=== PATIENT | female | born 1950 | race Caucasian/White ===

== ENCOUNTER → 2016-07-09 | Outpatient (CLI) | payer MEDICARE, BC | END | disposition home or self-care (01) | LOC: GMAM 17:51 | PROVIDERS: ATTEND Family Medicine | DX: I10 Essential (primary) hypertension (principal); E04.9 Nontoxic goiter, unspecified ==

== ENCOUNTER → 2017-01-06 | Outpatient (CLI) | payer MEDICARE, BC | END | disposition home or self-care (01) | LOC: GMAM 14:26 | PROVIDERS: ATTEND Family Medicine | DX: E04.9 Nontoxic goiter, unspecified (principal) ==

== ENCOUNTER → 2017-02-03 | Outpatient (CLI) | payer MEDICARE, BC ==
--- NOTE | 2017-02-04 18:17 | CT ---
EXAM DESCRIPTION: Chest w/Contrast CT CLINICAL HISTORY: R91.8, I10 COMPARISON: Abdomen pelvis CT scan 02/15/2016. TECHNIQUE: Spiral-axial scans at 5.0 mm intervals through the lungs and thorax with IV contrast. 2.5 mm lung algorithm axial reconstructions. Coronal and sagittal 2.0 Mm reconstructions. No adverse reactions. Total Exam DLP: 636.85 mGy-cm. This exam was performed according to our departmental dose-optimization program which includes automated exposure control, adjustment of the mA and/or kV according to patient size and/or use of iterative reconstruction technique; to reduce radiation dose to as low as reasonably achievable (ALARA). FINDINGS: Marked enlargement and masslike thyroid gland predominantly left lobe and isthmus compared to the right lobe. The left lobe measures 6.2 x 5.4 cm largest transverse dimensions which is in the upper mediastinum with mass effect on the brachiocephalic vessels and left innominate vein. Small calcifications in the left lobe just above this level. The lobe is almost 10 cm craniocaudal. Superior extent is above the level of the piriform sinuses, at the level of the thyroid cartilage and inferior hyoid bone, with mass effect on the airway to the right. Right lobe measures 3.4 x 2.7 cm just above the thoracic inlet with craniocaudal length 5.7 cm, extending into the superior mediastinum. Isthmus thickness is 1.5 cm with a nodule extending inferiorly from the left side. The trachea and esophagus are deviated to the right of midline. Bilateral mass effect on jugular veins and carotid arteries, and superior aspect of the SVC. Inferior extent is the aortic arch. Partially calcified posterior right hilar nodes. No enlarged nodes in the AP window or azygos spaces. No enlarged nodes in the subcarinal space. Minimal atelectasis in the right lung base. Small right pleural bleb. No pleural effusion or pneumothorax. Epicardial fat abutting the posterior right hemidiaphragm. Focal thickening in the anterior lateral horizontal fissure versus 5 mm lymph node. No abnormal nodules or infiltrates. No subdiaphragmatic fluid or free air in the included peritoneal space. Splenic calcification. Normal size of the adrenal glands. Almost 1 cm radiodense gallstone in the neck of the gallbladder. Question of more inferior dependent gravel. 1.2 cm cyst inferior right hepatic lobe. No abnormality in the included pancreas. Spondylosis in the cervical spine and in the lower thoracic spine. No bone destruction in the included thorax. Arthrosis in the bilateral sternoclavicular joints. No enlarged axillary lymph nodes. IMPRESSION: 1. Massive enlargement of the thyroid gland left lobe more than isthmus and the right. Cannot rule out infiltrative process. No significant adenopathy surrounding the gland. Consider image guided fine-needle core biopsy of the gland. 2. No significant pulmonary disease. 3. 1.2 cm cyst in the inferior right hepatic lobe. 1 cm radiodense gallstone. Electronically signed by: Rob Borden MD 02/04/2017 6:15 PM CDT Workstation: [id number]
== END ==
LOC: CT 09:01
PROVIDERS: ATTEND Family Medicine
DX: R91.8 Other nonspecific abnormal finding of lung field (principal); I10 Essential (primary) hypertension; E04.9 Nontoxic goiter, unspecified; K76.89 Other specified diseases of liver; K80.80 Other cholelithiasis without obstruction

== ENCOUNTER → 2017-03-18 | Outpatient (CLI) | payer MEDICARE, BC ==
--- NOTE | 2017-03-18 16:10 | US ---
PROCEDURE: Venous,Lower Extremity LT CLINICAL HISTORY and INDICATION: Left leg swelling and pain COMPARISON: None. TECHNIQUE: Woo scale imaging with duplex interrogation of the left lower extremity venous system was performed and multiple static images were obtained. FINDINGS: Utilizing compression and augmentation, there is no deep venous thrombus in the common femoral, superficial femoral or popliteal veins. The posterior tibial and deep peroneal veins are patent and compressible. . The greater saphenous vein at the saphenofemoral junction is patent and compressible. There is no visualization of any subcutaneous fluid collections. There is no visualization of any fluid collections in the left popliteal fossa. There is no evidence of reactive or pathological lymphadenopathy in the evaluated left lower extremity. IMPRESSION: No deep venous thrombosis of the left lower extremity. Location of Interpretation: [id number] Electronically signed by: Jimbo Marie MD 03/18/2017 4:09 PM CDT Workstation: [id number]
--- NOTE | 2017-03-18 20:01 | US ---
PROCEDURE: Venous,Lower Extremity LT CLINICAL HISTORY and INDICATION: Left leg swelling and pain COMPARISON: None. TECHNIQUE: Woo scale imaging with duplex interrogation of the left lower extremity venous system was performed and multiple static images were obtained. FINDINGS: Utilizing compression and augmentation, there is no deep venous thrombus in the common femoral, superficial femoral or popliteal veins. The posterior tibial and deep peroneal veins are patent and compressible. . The greater saphenous vein at the saphenofemoral junction is patent and compressible. There is no visualization of any subcutaneous fluid collections. There is no visualization of any fluid collections in the left popliteal fossa. There is no evidence of reactive or pathological lymphadenopathy in the evaluated left lower extremity. IMPRESSION: No deep venous thrombosis of the left lower extremity. Location of Interpretation: [id number] Electronically signed by: Jimbo Marie MD 03/18/2017 4:09 PM CDT Workstation: [id number]
== END ==
LOC: US 09:33
PROVIDERS: ATTEND Family Medicine
DX: R60.9 Edema, unspecified (principal); I10 Essential (primary) hypertension; R73.09 Other abnormal glucose

== ENCOUNTER → 2017-06-15 | Outpatient (CLI) | payer MEDICARE, BC | LOC: GMAM 14:40 | PROVIDERS: ATTEND Family Medicine | DX: E04.9 Nontoxic goiter, unspecified (principal) ==

== ENCOUNTER → 2017-10-19 | Outpatient (CLI) | payer MEDICARE, BC | LOC: GMAM 11:48 | PROVIDERS: ATTEND Family Medicine | DX: E04.9 Nontoxic goiter, unspecified (principal) ==

== ENCOUNTER → 2017-11-23 | Outpatient (CLI) | payer MEDICARE, BC | LOC: GMAM 12:44 | PROVIDERS: ATTEND Family Medicine | DX: E04.9 Nontoxic goiter, unspecified (principal) ==

== ENCOUNTER → 2017-12-02 | Outpatient (CLI) | payer MEDICARE, BC ==
--- NOTE | 2017-12-02 17:32 | MRI ---
EXAM DESCRIPTION: Lumbar Spine w/o Contrast : Magnetic Resonance Imaging. CLINICAL HISTORY: LOW BACK PAIN COMPARISON: LUMBAR TECHNIQUE: Multiplanar, multiple standard sequences, non contrast MRI, lumbar spine. FINDINGS: L5-S1: Normal signal in the disc with disc space preserved. Minimal facet arthrosis and flavum ligament hypertrophy. Mild canal narrowing. Bilateral moderate foraminal narrowing. L4-5: Normal signal in the disc with disc space preserved. Minimal right facet arthrosis. Bilateral flavum ligament hypertrophy. Mild canal narrowing. Bilateral foramina are patent. Anterior inferior L4 endplate right T1 and T2 well circumscribed signal. L3-4: Normal signal in the disc. Disc space preserved. Flavum ligament hypertrophy. Facets are unremarkable. Canal is patent. Bilateral foramina are patent. L2-3: Normal signal in the disc and disc space preserved. Minimal flavum ligament hypertrophy. Normal facets. Canal is patent. Bilateral foramina are patent. L1-2: Minimal disc desiccation. Anterior disc space loss. Anterior bulging and endplate ridging. Bright T1 and T2 and inversion recovery signal in the superior L2 endplate. No posterior bulging. Posterior elements unremarkable. Canal and foramina are patent. T12-L1: Normal signal in the disc and Disc space preserved. Flavum ligaments hypertrophy. Facets are unremarkable. Canal and foramina are patent. Conus terminates at this level. Anatomic alignment and curvature of the spine. Paravertebral soft tissues minimal paraspinal muscle atrophy.. Normal marrow signal in the remaining vertebral bodies and the posterior elements. Vertebral bodies are not compressed at any level. IMPRESSION: 1. Minimal to no disc degeneration. Canal narrowing at most levels due to flavum ligament hypertrophy. Minimal facet arthrosis on the study. No significant canal or foraminal stenosis. 2. Anterior disc degeneration and disc space loss at L1-L2 with mild spondylosis. 3. Mild canal narrowing L5-S1 with bilateral moderate foraminal narrowing. 4. Anterior hemangioma in the inferior L4 endplate. Electronically signed by: Rob Borden MD 12/02/2017 5:30 PM CDT
== END ==
LOC: MRI 10:00
PROVIDERS: ATTEND Family Medicine
DX: M51.36 Other intervertebral disc degeneration, lumbar region (principal); D18.09 Hemangioma of other sites; M54.5 Low back pain

== ENCOUNTER → 2018-01-27 | Outpatient (CLI) | payer MEDICARE, BC | LOC: GMAM 14:57 | PROVIDERS: ATTEND Family Medicine | DX: E04.9 Nontoxic goiter, unspecified (principal) ==

== ENCOUNTER → 2018-05-25 | Outpatient (CLI) | payer MEDICARE, BC | LOC: GMAM 14:35 | PROVIDERS: ATTEND Family Medicine | DX: E04.9 Nontoxic goiter, unspecified (principal) ==

== ENCOUNTER → 2018-05-28 | Outpatient (CLI) | payer MEDICARE, BC ==
--- NOTE | 2018-05-28 13:10 | CT ---
Procedure: CT LUNG SCREENING Exam Date: 05/28/2018. 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 This patient meets eligibility criteria for low-dose CT lung cancer screening. Comparison: CT scan of the lungs with IV contrast 02/03/2017. Technique: Using a multislice scanner, sequential helical axial imaging was obtained in the thorax, 2.5 mm thickness, 2.5 mm separation, from the level of the thoracic inlet through the lung bases without IV contrast. A low dose protocol was utilized: CTDI: 2.9 mGy. 120. kVp. 45 mA. 101.38 mGy centimeters. 2D sagittal and coronal reconstructed images, 6.0 mm thickness, were obtained. This exam was performed according to our departmental dose optimization program which includes use of automated exposure control, adjustment of the mA and/or kV according to patient size and/or use of iterative reconstruction technique. Nodule measurements under 10 mm are given as mean value of 3 axes diameters. FINDINGS: Lungs and large airways: 4 mm oblong solid nodule associated with the lateral horizontal fissure and the subpleural lateral aspect of the right middle lobe, axial series 2, image 46. Smaller subpleural densities bilaterally. No abnormal nodules, masses, or focal infiltrates. Pleura and space: No effusion bilaterally or pneumothorax. Mediastinum and yehuda: evaluation limited by low dose technique and lack of IV contrast. Small lymph nodes. Heart and great vessels: Small calcification at the aortic valve. Chest wall, lower neck, axillae: Evaluation also limited by same factors as described above. Diastases of the bilateral posterior hemidiaphragms with bulging of mesenteric fat, but no definite hernia. Not seen on the prior study. Upper abdomen: No free air or fluid in the included peritoneal space. Almost 1 cm calcified stone in the gallbladder near the neck. Duct not well seen. Low-density structure abutting the gallbladder in the subcapsular medial liver. Normal size and density of the spleen and adrenal glands. Osseous structures: Evaluation limited by low dose MIP technique. Unremarkable. IMPRESSION: 1. 4 mm solid nodule associated with the lateral horizontal fissure. Other subpleural densities bilaterally are smaller. No abnormal nodule, no mass or focal infiltrate. [employer] Best Practice guidelines according to lung RADS classification system. Please see below for Lung RADS category and FOLLOW-UP.* 2. Ectasia posterior bilateral hemidiaphragms with bulging mesentery but no definite hernia. 3. Calcification either in the aortic valve or proximal coronary artery. 4. Less than 1 cm calcified stone in the gallbladder. Stable since the prior study. Low-density 12 mm object abutting the gallbladder in the subcapsular medial liver. Appearance of stable cyst since the prior study. Consider follow-up right upper quadrant abdominal ultrasound to evaluate gallbladder not previously done. *Lung RADS category CATEGORY 2- Nodules with a very low likelihood (less than 1%) of becoming a clinically active cancer due to size or lack of growth. Nodules: Solid or part solid nodule(s) less than 6mm, new solid nodule less than 4mm. Ground glass nodule(s) less than 20mm or unchanged or slow growing ground glass nodule 20mm or greater. Cat 3 or 4 nodule unchanged for 3 or more months. FOLLOW-UP: Continue annual screening with a Low Dose Chest CT in 12 months for re-evaluation. Electronically signed by: Rob Borden MD 05/28/2018 1:[address] [facility]
== END ==
LOC: CT 09:00
PROVIDERS: ATTEND Family Medicine
DX: R91.1 Solitary pulmonary nodule (principal); F17.200 Nicotine dependence, unspecified, uncomplicated; K80.20 Calculus of gallbladder without cholecystitis without obstruction; Z87.891 Personal history of nicotine dependence

== ENCOUNTER → 2018-06-21 | Outpatient (CLI) | payer MEDICARE, BC ==
--- NOTE | 2018-06-21 19:42 | US ---
EXAM DESCRIPTION: Gall Bladder: ULTRASOUND. CLINICAL HISTORY: CHOLELITHIASIS COMPARISON: CT lung screening 05/28/2018. TECHNIQUE: Transabdominal scanning: Woo-scale and Doppler modes. FINDINGS: Gallbladder: Normal size. Echogenic stone in the neck of the gallbladder measuring 1 cm. Smaller stone in the dependent portion of the gallbladder with patient motion measuring approximately 4 x 5 mm. No fluid around the gallbladder. No wall thickening. 0.9 mm. Non-tender with transducer pressure. Common bile duct: caliber 3 mm within normal limits. Liver: Increased echogenicity; contour liver capsule smooth where seen. No fluid around the liver. Intrahepatic biliary ducts normal caliber. Doppler hepatopedal flow portal vein.. Long axis right lobe 15.8 cm. Pancreas: normal size and echogenicity. Duct not seen. Aorta: Normal caliber from the proximal segment to the distal bifurcation. Right kidney: Long axis is 9.9 cm. Normal cortical echogenicity with thickness 10 mm. No hydronephrosis or perinephric fluid. Normal vascularity. IMPRESSION: 1. Cholelithiasis of the gallbladder with one large stone in the gallbladder neck and smaller stone in the dependent portion. No wall thickening and fluid surrounding the gallbladder. Nontender with transducer pressure. Normal caliber of the common bile duct. 2. Steatosis of the liver upper normal limits in size. Normal vascularity and intrahepatic ducts. Smooth capsule with no ascites. Pancreas is unremarkable. 3. Cortical thinning in the right kidney which may be age-related. Normal echogenicity with no hydronephrosis. Electronically signed by: Rob Borden MD 06/21/2018 7:40 PM [employer]
== END ==
LOC: US 12:09
PROVIDERS: ATTEND Family Medicine
DX: K80.20 Calculus of gallbladder without cholecystitis without obstruction (principal); K76.0 Fatty (change of) liver, not elsewhere classified

== ENCOUNTER → 2018-11-25 | Outpatient (CLI) | payer MEDICARE, BC ==
--- NOTE | 2018-11-25 16:39 | CT ---
Procedure: CT ABDOMEN PELVIS WITH IV CONTRAST Exam Date: 11/25/2018 Ordering Provider: Bella Ferrer Clinical Indication: Generalized abdominal pain Comparison: 06/21/2018 right upper quadrant ultrasound TECHNIQUE: 5 mm images were taken through the abdomen and pelvis after the administration of nonionic intravenous contrast material. Oral contrast was not administered. Coronal and sagittal reformatted images were generated. This exam was performed according to our departmental dose optimization program which includes use of automated exposure control, adjustment of the mA and/or kV according to patient size and/or use of iterative reconstruction technique. FINDINGS: Lower chest: Small hiatal hernia. Abdomen: Liver and biliary system: Hepatomegaly. Hepatic steatosis. 17 mm cyst in the right hepatic lobe. Cholelithiasis without CT evidence of acute cholecystitis. Spleen: Unremarkable Pancreas: Unremarkable Adrenal glands: Unremarkable Kidneys, ureters, bladder: Punctate nonobstructing stone in the upper pole of the right kidney. No hydronephrosis in either kidney. Ureters and bladder are unremarkable. Lymph nodes: No lymphadenopathy Retroperitoneum, abdominal wall, peritoneal cavity: No ascites. No free air. Small fat-containing umbilical hernia. Tiny fat-containing inguinal hernias. Vessels: No abdominal aortic aneurysm. Bowel: No bowel obstruction. Prior appendectomy. Moderate colonic stool burden. Pelvic organs: Prior hysterectomy. Bones: No destructive bony lesions. IMPRESSION: 1. Hepatomegaly and hepatic steatosis. 2. Cholelithiasis without CT evidence of acute cholecystitis. 3. Hepatic cyst. 4. Right nephrolithiasis without hydronephrosis. 5. Prior hysterectomy and appendectomy. Electronically signed by: Wilman Colon MD 11/25/2018 4:37 PM CDT
== END ==
LOC: CT 15:21
PROVIDERS: ATTEND Nurse Practitioner Family
DX: R16.0 Hepatomegaly, not elsewhere classified (principal); K76.89 Other specified diseases of liver; N20.0 Calculus of kidney; Z90.710 Acquired absence of both cervix and uterus; Z90.49 Acquired absence of other specified parts of digestive tract

== ENCOUNTER → 2019-01-24 | Outpatient (CLI) | payer MEDICARE, BC | LOC: GMAM 15:04 | PROVIDERS: ATTEND Family Medicine | DX: E04.9 Nontoxic goiter, unspecified (principal) ==

== ENCOUNTER → 2019-03-07 | Outpatient (CLI) | payer MEDICARE, BC | LOC: GMAM 11:43 | PROVIDERS: ATTEND Family Medicine | DX: E04.9 Nontoxic goiter, unspecified (principal); I10 Essential (primary) hypertension; R73.9 Hyperglycemia, unspecified ==

== ENCOUNTER → 2019-12-14 | Outpatient (CLI) | payer MEDICARE, BC | LOC: GMAM 14:56 | PROVIDERS: ATTEND Family Medicine | DX: E03.9 Hypothyroidism, unspecified (principal); E55.9 Vitamin D deficiency, unspecified; I10 Essential (primary) hypertension; R73.9 Hyperglycemia, unspecified ==

== ENCOUNTER 2019-12-22 12:27 | Emergency (ER) | payer MEDICARE, BC ==
--- NOTE | 2019-12-22 12:38 | ED.PDOC ---
History of Present Illness - General Chief Complaint: Blood Pressure Problem Time Seen by Provider: 12/22/19 12:32 Source: patient, RN notes reviewed, Vital Signs reviewed, EMS notes reviewed, family Exam Limitations: no limitations - History of Present Illness Initial Comments: 69 y/o female with a hx of "hard to control blood pressure" presents because she thinks her BP has been high and wants an evaluation. Her SBP has been running over 200 and most of the time her DBP is > 110 lately. She also has vertigo when she closes her eyes. Her L ear has been bothering her as well. Timing/Duration: other - 2-3 days Severity: moderate Improving Factors: nothing Worsening Factors: nothing Associated Symptoms: denies symptoms Allergies/Adverse Reactions: Allergies Sulfa Antibiotics Allergy (Verified 12/22/19 12:53) Home Medications: Ambulatory Orders Metoprolol Succinate [Metoprolol Succinate ER] 50 mg PO BEDTIME 05/14/16 Triamterene & Hydrochlorothiaz [Dyazide 37.5-25 mg] 1 cap PO BEDTIME 05/14/16 Amoxicillin & Pot Clavulanate [Augmentin Tab] 875 mg PO BID 10 Days #20 tab 12/22/19 Review of Systems - Review of Systems Constitutional: States: no symptoms reported EENTM: States: ear pain - L ear Respiratory: States: no symptoms reported Cardiology: States: no symptoms reported Gastrointestinal/Abdominal: States: no symptoms reported Genitourinary: States: no symptoms reported Musculoskeletal: States: no symptoms reported Skin: States: no symptoms reported Neurological: States: other - vertigo when eyes are closed Endocrine: States: no symptoms reported Hematologic/Lymphatic: States: no symptoms reported Past Medical History (General) - Patient Medical History Hx Congestive Heart Failure: No Hx Diabetes: No Hx MRSA: No Family Medical History - Family History Mother Family History: Unknown Physical Exam - Physical Exam General Appearance: Alert, No apparent distress, Obese Eye Exam: right normal Ears, Nose, Throat: hearing grossly normal, abnormal TM (L) - dull, red, and retracted, pharyngeal erythema Neck: non-tender, full range of motion, supple, normal inspection Respiratory: chest non-tender, lungs clear, normal breath sounds, no respiratory distress, no accessory muscle use Cardiovascular/Chest: regular rate, rhythm, no edema, no gallop, no JVD, no murmur Gastrointestinal/Abdominal: normal bowel sounds, non tender, soft Extremity: other - L foot stays swollen most of the time Neurologic: stage rigger II-XII nml as tested, no motor/sensory deficits, alert, normal mood/affect, oriented x 3 Progress - Progress Progress: 12/22/19 14:16 system area wide is down. i'm unable to consult with Dr Julian by phone. BP is much better 158/84 - EKG/XRAY/CT EKG: Sinus Comments: rate 54, incomplete RBBB, septal infarct undetermined age. [id number], no NIKHIL Departure - Departure Clinical Impression: Uncontrolled hypertension, Vertigo Left otitis media Qualifiers: Otitis media type: unspecified Qualified Code(s): H66.92 - Otitis media, unspecified, left ear Time of Disposition: 14:18 Disposition: Discharge to Home or Self Care Condition: Good Departure Forms: ED Discharge - Pt. Copy, Patient Portal Self Enrollment Instructions: DI for High Blood Pressure, Medicines for High Blood Pressure, Controlling Your Blood Pressure Through Lifestyle Referrals: Eliceo Julian MD [Primary Care Provider] - 1-2 Weeks Prescriptions: Amoxicillin & Pot Clavulanate [Augmentin Tab] 875 mg PO BID 10 Days #20 tab Home Medications: Ambulatory Orders Metoprolol Succinate [Metoprolol Succinate ER] 50 mg PO BEDTIME 05/14/16 Triamterene & Hydrochlorothiaz [Dyazide 37.5-25 mg] 1 cap PO BEDTIME 05/14/16 Amoxicillin & Pot Clavulanate [Augmentin Tab] 875 mg PO BID 10 Days #20 tab 12/22/19
--- NOTE | 2019-12-22 13:31 | RAD ---
EXAM DESCRIPTION: Chest,1 View CLINICAL HISTORY: uncontrolled BP COMPARISON: None. IMPRESSION: Single AP portable upright view of the chest shows enlargement of the cardiac silhouette without pulmonary vascular congestion. Mild tortuosity the thoracic aorta.. Lungs are normally aerated and clear. No obvious pleural effusion or pneumothorax is seen. Electronically signed by: Derian Ribera MD 12/22/2019 1:29 PM CDT
--- NOTE | 2019-12-22 13:34 | CT ---
EXAM DESCRIPTION: Head CLINICAL HISTORY: vertigo COMPARISON: None TECHNIQUE: Noncontrast transaxial CT images of the head are obtained from base to vertex. This exam was performed according to our departmental dose-optimization program, which includes automated exposure control, adjustment of the mA and/or kV according to patient size and/or use of iterative reconstruction technique. FINDINGS: The midline structures are not displaced. Sulci are age-appropriate. There are areas of decreased attenuation in the periventricular white matter and the white matter of the centrum semiovale. There is no evidence of mass, mass-effect, hydrocephalus, or acute intracranial hemorrhage. No abnormal extra axial fluid collection is seen. Mild calcifications of the carotid arteries. Bone windows show no evidence of depressed skull fracture. Linear increased attenuation thinning of the scalp soft tissue in the posterior left vertex probably represents scar tissue. The visualized paranasal sinuses shows mild mucosal thickening in the right maxillary and bilateral ethmoid sinuses.. IMPRESSION: 1. Age-appropriate atrophy with evidence of old small vessel ischemic type changes seen. 2. No acute abnormality is seen on noncontrast CT of the head. Electronically signed by: Derian Ribera MD 12/22/2019 1:32 PM CDT
[2019-12-22 14:35] VITALS: BP 135/84; TEMP 98.3; O2SAT 98
== END 2019-12-22 14:35 | disposition home or self-care (01) ==
LOC: ER 12:27
DX: I10 Essential (primary) hypertension (principal); R42 Dizziness and giddiness; H66.92 Otitis media, unspecified, left ear; I45.10 Unspecified right bundle-branch block; E66.9 Obesity, unspecified; Z79.899 Other long term (current) drug therapy; Z88.2 Allergy status to sulfonamides; Z68.33 Body mass index [BMI] 33.0-33.9, adult

== ENCOUNTER → 2019-12-27 | Outpatient (CLI) | payer MEDICARE, BC ==
--- NOTE | 2019-12-27 20:13 | CT ---
EXAM DESCRIPTION: Chest w/Contrast CLINICAL HISTORY: 69 years, Female, SOLITARY PULMONARY NODULE COMPARISON: Chest x-ray December 22, 2019, CT chest May 28, 2018 TECHNIQUE: Thin-section noncontrast axial CT images are obtained according to our protocol. Reconstructed MPR images are created and reviewed as well. FINDINGS: Lungs: No consolidating pulmonary infiltrate or groundglass infiltrate. No worrisome pulmonary mass or nodule. 4 mm nodule associated with the right minor fissure with trying or shape is consistent with intrapulmonary lymph node unchanged from previous. With 18 month follow-up showing no change, no further imaging is needed for this finding. However if the exam was performed for lung cancer screening then continued routine annual follow-up with low-dose technique is recommended. Mediastinum: Lymph nodes are normal in size. Small hiatal hernia in the lower chest. Normal vascular contours. Heart size is normal with no pericardial effusion. Chest wall/axilla: No mass or adenopathy. Lower neck/supraclavicular: No mass or adenopathy. Thyroid gland is atrophic or absent. Upper abdomen: Low density liver consistent with diffuse hepatic steatosis. Low density lesion in the right lobe of the liver consistent with a cyst 1.8 cm. Calcified stones in the gallbladder. Otherwise unremarkable upper abdominal viscera. Sagittal reformatted images show tiny intrapulmonary lymph nodes along the right minor and major fissures. IMPRESSION: Stable intrapulmonary lymph node associated with the right minor fissure 4 mm. See above recommendations for follow-up. Diffuse hepatic steatosis. Right lobe liver cyst. Gallstones. This exam was performed according to our departmental dose-optimization program, which includes automated exposure control, adjustment of the mA and/or kV according to patient size and/or use of iterative reconstruction technique. Total DLP equals 680.4 mGycm. Electronically signed by: Marlo Santo MD 12/27/2019 3:47 PM CDT
== END ==
LOC: CT 10:30
PROVIDERS: ATTEND Family Medicine
DX: R91.1 Solitary pulmonary nodule (principal); K76.0 Fatty (change of) liver, not elsewhere classified; K76.89 Other specified diseases of liver; K80.20 Calculus of gallbladder without cholecystitis without obstruction

== ENCOUNTER → 2020-01-20 | Outpatient (CLI) | payer MEDICARE, BC ==
--- NOTE | 2020-01-23 20:15 | NM ---
EXAM DESCRIPTION: Hepatobiliar w/CCK: Nuclear Medicine. CLINICAL HISTORY: CALCULUS OF GALLBLADDER WITHOUT CHOLECYSTITIS COMPARISON: Ultrasound gallbladder June 2018. CT abdomen November 2018. Multiple gallstones. TECHNIQUE: Patient was given 8.5 mCi of technetium 99 M mebrofenin (Choletec) radiopharmaceutical IV. Anterior gamma camera images were obtained of the right upper quadrant at 5 minute intervals for 90 minutes . The patient was not given CCK due to lack of visualization of the gallbladder. Delayed images were obtained of the liver and gallbladder at 4 hours after radiopharmaceutical administration. FINDINGS: After administration of radiopharmaceutical, immediate visualization of the entire liver with no focal area of abnormal regions of increased or decreased activity. Almost immediate visualization of intrahepatic ducts. Timely visualization of extrahepatic ducts and small bowel. The gallbladder was not visualized even after 90 minutes. On 4 hour delay images, no gallbladder visualization. IMPRESSION: 1. Complete obstruction of the cystic duct. Most likely gallstone in the cystic duct. Nonvisualization of the gallbladder. 2. Intrahepatic and common bile duct are patent. Electronically signed by: Rob Borden MD 01/23/2020 8:13 PM CDT
== END ==
LOC: NM 09:00
PROVIDERS: ATTEND Family Medicine
DX: K80.21 Calculus of gallbladder without cholecystitis with obstruction (principal)
CPT/HCPCS: 78227; A9537

== ENCOUNTER → 2020-03-14 | Outpatient (CLI) | payer MEDICARE, BC | LOC: GMAM 10:18 | PROVIDERS: ATTEND Family Medicine | DX: Z01.812 Encounter for preprocedural laboratory examination (principal) ==

== ENCOUNTER 2020-03-15 05:35 | Day surgery (SDC) | payer MEDICARE, BC ==
[2020-03-15] MEDS ORDERED: LACTATED RINGERS 1,000 ML ONE (06:39)
[2020-03-15] MEDS ORDERED: GLYCOPYRROLATE 0.2 MG/ML VIAL ONE (07:00)
[2020-03-15] MEDS ORDERED: DEXAMETHASONE INJ 10 MG/ML VIAL ONE (07:00)
[2020-03-15] MEDS ORDERED: MAGNESIUM SULFATE INJ 1 GM/2 ML VIAL ONE (07:00)
[2020-03-15] MEDS ORDERED: LIDOCAINE 1% 10 ML VIAL INJ ONE (07:00)
[2020-03-15] MEDS ORDERED: PROPOFOL 200 MG/20 ML VIAL IV ONE (07:00)
[2020-03-15] MEDS ORDERED: BUPIVACAINE 0.5% W/EPI 30 ML VIAL INJ ONE (07:16)
[2020-03-15] MEDS ORDERED: MIDAZOLAM INJ 2 MG/2 ML VIAL ONE (07:56)
[2020-03-15] MEDS ORDERED: SUGAMMADEX SODIUM 200 MG/2 ML VIAL IV ONE (07:56)
[2020-03-15] MEDS ORDERED: KETAMINE HCL 100 MG/ML VIAL ONE (07:56)
[2020-03-15] MEDS ORDERED: ROCURONIUM BROMIDE 10 MG/ML VIAL ONE (07:56)
[2020-03-15] MEDS ORDERED: DEXMEDETOMIDINE HCL 200 MCG/2 ML INJ IV ONE (07:56)
[2020-03-15] MEDS ORDERED: fentaNYL CITRATE INJ 50 MCG/ML 2 ML AMP ONE (07:56)
[2020-03-15] MEDS ORDERED: FAMOTIDINE INJ 10 MG/ML VIAL IV ONE (07:57)
--- NOTE | 2020-03-15 09:14 | OP ---
DATE OF PROCEDURE: 03/15/20 PREOPERATIVE DIAGNOSIS: 1. Positive HIDA scan for cystic duct obstruction. POSTOPERATIVE DIAGNOSIS: 1. Chronic cholecystectomy and cholelithiasis. PROCEDURE: 1. Laparoscopic cholecystectomy. SURGEON: Omar Gimenez MD. ANESTHESIA: General and local. FINDINGS: Multiple medium sized stones in the gallbladder with otherwise contracted gallbladder. The anatomy was clearly visualized. No evidence of cystic or common duct stone. COMPLICATIONS: None. ESTIMATED BLOOD LOSS: Minimal. SPECIMEN: Gallbladder. PLAN: Discharge. INDICATION: As stated. PROCEDURE: General anesthesia was induced. The patient was prepped and draped in sterile fashion. Marcaine 0.5% with epinephrine was used at all incision sites. While maintaining upward traction, a kale was made near the base of the umbilicus. Veress needle was introduced. There was free flow of fluid into the peritoneal cavity which was insufflated to an appropriate level with CO2 gas. The 5 mm trocar was placed followed by the camera. There was no evidence of bleeding or bowel injury. The patient was positioned and subxiphoid and lateral ports were placed under direct visualization without difficulty. The gallbladder fundus was easily identified. It was grasped and retracted superiorly and laterally. The gallbladder was contracted around multiple moderately large stones. The cystic duct was clearly visualized. It was isolated, as was the cystic artery. Each was triply ligated. The gallbladder was then dissected off the fossa in toto and removed in the EndoCatch bag. The fossa was examined. It remained hemostatic. The clips were intact. There was no bleeding or bile leak. The subxiphoid fascia was then closed with 0 Vicryl using the suture passer. It was airtight and non-bleeding. The remaining trocars were removed. There was no bleeding from the trocar sites. The wounds were irrigated and closed with Monocryl. Dressings were applied. The patient was awakened and taken to Recovery in stable condition to be discharged. #[id number] cc: Eliceo Julian MD [facility]
[2020-03-15] MEDS ORDERED: ONDANSETRON ODT 8 MG TAB ONE (10:57)
[2020-03-15 11:38] VITALS: BP 100/57; TEMP 97.1; O2SAT 93
== END 2020-03-15 11:10 | disposition home or self-care (01) ==
LOC: AMB 05:35
PROVIDERS: ATTEND Surgery
DX: K80.10 Calculus of gallbladder with chronic cholecystitis without obstruction (principal); I10 Essential (primary) hypertension; E03.9 Hypothyroidism, unspecified; K21.9 Gastro-esophageal reflux disease without esophagitis; Z88.6 Allergy status to analgesic agent; Z88.2 Allergy status to sulfonamides; Z88.8 Allergy status to other drugs, medicaments and biological substances
CPT/HCPCS: 00790; 47562; J2250; J3010; J7120